=== PATIENT | female | born 1990 | race African-American/Black ===

== ENCOUNTER 2016-05-16 03:04 | Day surgery (SDC) | payer OTHER ==
[~2016-05-16] VITALS: Ht 167.6 cm; Wt 68.2 kg
[2016-05-16 03:38] LABS: HEMATOCRIT 38.6 % (36.0-46.0); MCH 27.6 PG (29.0-34.0); MCV 74.4 FL (83-99); MEAN PLAT.VOLUME 10.7 uM^3 (9.5-12.4); PLATELET COUNT 212 K/uL (156-360); RBC DIS.WIDTH-CV 13.3 % (11.8-14.6); RBC DIS.WIDTH-SD 35.4 % (39-53); RED BLOOD COUNT 5.19 M/uL (3.80-5.20); WHITE BLOOD COUNT 9.3 K/uL (4.1-10.2)
[2016-05-16 03:42] LABS: EOSINOPHIL (%) 2.8 % (0-5); EOSINOPHIL COUNT 0.3 K/uL (0-0.3); IMMATURE GRANULOCYTE (%) 0.4 % (0.0-0.7); IMMATURE GRANULOCYTE COUNT 0.4 K/uL; LYMPHOCYTE COUNT 1.7 K/uL (1.0-2.8); MONOCYTE (%) 5.6 % (3-12); MONOCYTE COUNT 0.5 K/uL (0-0.8); NEUTROPHIL (%) 73.5 % (45-76); NEUTROPHIL COUNT 7.1 K/uL (1.8-6.4)
[2016-05-16 03:46] LABS: CHLORIDE 107 mEq/L (99-109); SODIUM 140 mEq/L (136-147)
[2016-05-16 03:46] LABS: ADD MIUA? NO; BILIRUBIN NEGATIVE; BLOOD NEGATIVE; COLOR YELLOW ((YELLOW)); GLUCOSE (STRIP) NEGATIVE; KETONES 5; LEUKOCYTES NEGATIVE; NITRITE NEGATIVE; PROTEIN (STRIP) NEGATIVE; SPECIFIC GRAVITY 1.026 (1.000-1.030); UCUL ADDED? NO
[2016-05-16 03:48] LABS: GLUCOSE 91 mg/dL (70-99)
[2016-05-16 03:49] LABS: ANION GAP 8 MEQ/L (2-14)
[2016-05-16 03:52] LABS: UREA NITROGEN (BUN) 8 mg/dL (9-23)
[2016-05-16 03:57] LABS: GFR ESTIMATE (CALCULATED) > 59 mL/min/
[2016-05-16 03:59] LABS: QUANTITATIVE HCG < 4.0 MIU/ML
[2016-05-16 06:04] LABS: EOSINOPHIL (%) 1.7 % (0-5); EOSINOPHIL COUNT 0.2 K/uL (0-0.3); HEMATOCRIT 33.4 % (36.0-46.0); IMMATURE GRANULOCYTE (%) 0.2 % (0.0-0.7); IMMATURE GRANULOCYTE COUNT 0.2 K/uL; LYMPHOCYTE COUNT 1.4 K/uL (1.0-2.8); MCH 27.3 PG (29.0-34.0); MCHC 36.5 G/DL (30.0-36.0); MCV 74.7 FL (83-99); MEAN PLAT.VOLUME 11.2 uM^3 (9.5-12.4); MONOCYTE (%) 4.3 % (3-12); MONOCYTE COUNT 0.4 K/uL (0-0.8); NEUTROPHIL (%) 78.5 % (45-76); NEUTROPHIL COUNT 7.2 K/uL (1.8-6.4); PLATELET COUNT 185 K/uL (156-360); RBC DIS.WIDTH-CV 13.1 % (11.8-14.6); RBC DIS.WIDTH-SD 34.4 % (39-53); RED BLOOD COUNT 4.47 M/uL (3.80-5.20); WHITE BLOOD COUNT 9.2 K/uL (4.1-10.2)
[2016-05-16] MEDS ORDERED: PERCOCET 5/31 TABLET PO (08:25)
[2016-05-16] MEDS ORDERED: MOTRIN800 MG PO (08:25)
[2016-05-16 09:40] VITALS: BP 166/98
[2016-05-16 11:00] VITALS: BP 125/80
[2016-05-16 12:26] VITALS: BP 141/86
== END 2016-05-16 12:40 | disposition home or self-care (01) ==
LOC: EME 03:04 → SDC 07:38
PROVIDERS: Emergency Medicine
PROC: 0UB04ZZ Excision of Right Ovary, Percutaneous Endoscopic Approach (ICD-10-PCS; principal; 2016-05-16)
DX: K66.1 Hemoperitoneum (principal); N83.201 Unspecified ovarian cyst, right side; J45.909 Unspecified asthma, uncomplicated
CPT/HCPCS: 74177; 76856; 80048; 81003; 84702; 85025; 85025 91; 86850; 86900; 86901; 94640; 99281; 99285; J0330; J0690; J1100; J1170; J2250; J2270; J2405; J2710; J3010; J7030; S0020

== ENCOUNTER 2017-05-10 20:05 | Emergency (ER) | payer OTHER ==
[~2017-05-10] VITALS: Ht 175.3 cm; Wt 72.6 kg
[~2017-05-10 20:05] MED LIST: MOTRIN800 MG PO; PERCOCET 5/31 TABLET PO
[2017-05-10] MEDS ORDERED: MOTRIN600 MG PO (21:32)
[2017-05-10] MEDS ORDERED: MOTRIN800 MG PO (22:04)
[2017-05-10 22:08] VITALS: BP 117/71
== END 2017-05-10 22:08 | disposition home or self-care (01) ==
LOC: EME 20:05
DX: S43.401A Unspecified sprain of right shoulder joint, initial encounter (principal); Y93.83 Activity, rough housing and horseplay
CPT/HCPCS: 73030; 99281; 99284

== ENCOUNTER 2017-06-23 15:00 | Day surgery (SDC) | payer OTHER ==
[~2017-06-23] VITALS: Ht 165.1 cm; Wt 62.0 kg
[~2017-06-23 15:00] MED LIST changes: +MOTRIN600 MG PO
[2017-06-23 15:41] LABS: HEMATOCRIT 38.8 % (36.0-46.0); MCH 27.7 PG (29.0-34.0); MCHC 36.1 G/DL (30.0-36.0); MCV 76.7 FL (83-99); PLATELET COUNT 240 K/uL (156-360); RBC DIS.WIDTH-CV 12.4 % (11.8-14.6); RBC DIS.WIDTH-SD 34.1 % (39-53); RED BLOOD COUNT 5.06 M/uL (3.80-5.20); WHITE BLOOD COUNT 5.9 K/uL (4.1-10.2)
[2017-06-23 15:52] LABS: ALBUMIN 4.3 g/dL (3.2-4.8); CHLORIDE 106 mEq/L (99-109); SODIUM 140 mEq/L (136-147)
[2017-06-23 15:55] LABS: GLUCOSE 98 mg/dL (70-99); TOTAL PROTEIN 7.1 g/dL (6.4-8.3)
[2017-06-23 15:56] LABS: TOTAL BILIRUBIN 0.7 mg/dL (0.0-1.0)
[2017-06-23 15:58] LABS: ALKALINE PHOSPHATASE 62 IU/L (3-129); CREATININE 0.8 mg/dL (0.6-1.3); GFR ESTIMATE (CALCULATED) > 59 mL/min/
[2017-06-23 15:59] LABS: UREA NITROGEN (BUN) 8 mg/dL (9-23)
[2017-06-23 16:00] LABS: AST (GOT) 14 IU/L (2-34); DIRECT BILIRUBIN 0.3 mg/dL (0.0-0.3)
[2017-06-23 16:01] LABS: ALT (GPT) 17 IU/L (3-49)
[2017-06-23 16:02] LABS: LIPASE 23 U/L (1.0-51.0)
[2017-06-23 16:07] LABS: QUANTITATIVE HCG < 4.0 MIU/ML
[2017-06-23 20:38] LABS: HEMATOCRIT 34.8 % (36.0-46.0); HEMOGLOBIN 12.7 G/DL (11.9-15.5); MCHC 36.5 G/DL (30.0-36.0); MCV 76.8 FL (83-99); RBC DIS.WIDTH-CV 12.3 % (11.8-14.6); RED BLOOD COUNT 4.53 M/uL (3.80-5.20)
[2017-06-23 21:17] LABS: BASOPHIL (%) 0.3 % (0-1); EOSINOPHIL (%) 0.3 % (0-5); LYMPHOCYTE (%) 16.1 % (15-42); LYMPHOCYTE COUNT 1.6 K/uL (1.0-2.8); MONOCYTE (%) 3.1 % (3-12); MONOCYTE COUNT 0.3 K/uL (0-0.8); NEUTROPHIL (%) 79.2 % (45-76); PLAT.SUFFICIENCY DECREASED
[2017-06-23 21:21] LABS: PLATELET COUNT 110 K/uL (156-360)
[2017-06-23 22:27] LABS: APPEARANCE CLOUDY ((CLEAR)); BILIRUBIN NEGATIVE; BLOOD NEGATIVE; GLUCOSE (STRIP) NEGATIVE; KETONES 5; LEUKOCYTES NEGATIVE; NITRITE NEGATIVE; PROTEIN (STRIP) 30; SPECIFIC GRAVITY 1.029 (1.000-1.030); UROBILINOGEN 0.2 MG/DL (0.2-1.0)
[2017-06-23 22:28] LABS: COLOR DK YELLOW ((YELLOW))
[2017-06-23 22:35] VITALS: BP 109/57
[2017-06-23 22:51] LABS: BACTERIA RARE /HPF; EPITHELIAL CELLS 1+ /HPF; MUCUS 2+ /LPF; RED BLOOD CELLS 0-5 /HPF (0-5); UCUL ADDED? NO; WHITE BLOOD CELLS 0-5 /HPF (0-5)
[2017-06-24 00:20] VITALS: BP 102/58
[2017-06-24 02:52] LABS: HEMATOCRIT 29.4 % (36.0-46.0); HEMOGLOBIN 10.6 G/DL (11.9-15.5); MCH 27.7 PG (29.0-34.0); MCHC 36.1 G/DL (30.0-36.0); MCV 76.8 FL (83-99); PLATELET COUNT 181 K/uL (156-360); RBC DIS.WIDTH-CV 12.4 % (11.8-14.6); RED BLOOD COUNT 3.83 M/uL (3.80-5.20)
[2017-06-24 04:02] VITALS: BP 106/59
[2017-06-24] MEDS ORDERED: OXYCODONE HCL5 MG PO (06:29)
[2017-06-24 07:42] VITALS: BP 96/51
[2017-06-24 09:49] LABS: HEMATOCRIT 28.5 % (36.0-46.0); HEMOGLOBIN 10.4 G/DL (11.9-15.5); MCHC 36.5 G/DL (30.0-36.0); MCV 76.8 FL (83-99); PLATELET COUNT 161 K/uL (156-360); RBC DIS.WIDTH-CV 12.4 % (11.8-14.6); RBC DIS.WIDTH-SD 34.2 % (39-53); RED BLOOD COUNT 3.71 M/uL (3.80-5.20); WHITE BLOOD COUNT 6.1 K/uL (4.1-10.2)
== END 2017-06-24 11:22 | disposition home or self-care (01) ==
LOC: EME 15:00 → ENRESERV 18:53 → SDC 19:37 → 2EAST 20:49 → 2SOUTH 20:49 → 2EAST 21:59
PROVIDERS: Emergency Medicine; Obstetrics & Gynecology Obstetrics
DX: N83.201 Unspecified ovarian cyst, right side (principal); K66.1 Hemoperitoneum; J45.909 Unspecified asthma, uncomplicated; L30.9 Dermatitis, unspecified
CPT/HCPCS: 74176; 76856; 80048; 80076; 81003; 83690; 84702; 85025; 85027; 87086; 99281; 99285; G0378; J7030